=== PATIENT | female | born 1985 | race Caucasian/White ===

== ENCOUNTER → 2018-06-05 | Outpatient (CLI) | payer OTHER | LOC: FBPOP 16:43 → MERGE 16:43 | PROVIDERS: ATTEND Obstetrics & Gynecology | DX: Z53.9 Procedure and treatment not carried out, unspecified reason (principal) ==

== ENCOUNTER 2018-06-06 11:03 | Outpatient (CLI) | payer OTHER ==
[2018-06-06] MEDS ORDERED: BETAMET ACET-BETAMETH SOD PHOS 6 MG/ML VIAL IM SCH (11:15)
--- NOTE | 2018-07-06 08:18 | P.MSEPDOC ---
Presenting Problems - Arrival Data Date of Arrival on Unit: 06/06/18 Time of Arrival on Unit: 11:05 Mode of Transport: Ambulatory Medical History - Information : 2 Para: 1 Term: 1 : 0 Abortions: Spontaneous or Elective: 0 Number of Living Children: 1 - Gestational Age Gestational Age by TAYLOR (wks/days): 34 Weeks and 4 Days Disposition - Disposition OB Disposition: Discharge to home I agree with the RN Medical Screening Exam: Yes Risk & Benefit of care provided described in d/c instruction: Yes Diagnosis: RELATED CONDITIONS, UNSPECIFIED, THIRD TRIMESTER
== END 2018-06-06 11:30 | disposition home or self-care (01) ==
LOC: MERGE 11:03 → FBPOP 11:03
PROVIDERS: ATTEND Obstetrics & Gynecology
DX: O26.93 Pregnancy related conditions, unspecified, third trimester (principal); Z3A.34 34 weeks gestation of pregnancy
CPT/HCPCS: 99214; 96372; J0702

== ENCOUNTER 2018-06-07 10:44 | Outpatient (CLI) | payer OTHER ==
[2018-06-07] MEDS ORDERED: BETAMET ACET-BETAMETH SOD PHOS 6 MG/ML VIAL IM SCH (11:00)
--- NOTE | 2018-07-06 08:19 | P.MSEPDOC ---
Presenting Problems - Arrival Data Date of Arrival on Unit: 06/07/18 Time of Arrival on Unit: 10:45 Mode of Transport: Ambulatory - Complaint Comment: Pt arrives to triage for second celestone injection. Pt receives NSTs qweekly and rec'd one Monday. Medical History - Information : 2 Para: 1 Term: 1 : 0 Abortions: Spontaneous or Elective: 0 Number of Living Children: 1 - Gestational Age Gestational Age by TAYLOR (wks/days): 34 Weeks and 5 Days - History Complications: Multiple Review of Systems - Review of Systems Constitutional: No problems Breast: No problems ENT: No problems Cardiovascular: No problems Respiratory: No problems Gastrointestinal: No problems Genitourinary: No problems Musculoskeletal: No problems Neurological: No problems Skin: No problems Medical Screen Scoring (Pre) - Cervical Exam Dilation: Exam Deferred Effacement: Exam Deferred Membranes: Intact - Maternal Vital Signs Maternal Temperature: N/A - Total Score Total Score (Pre): 0 - Level of Risk Level of Risk: Low (0-5) Physician Notification (Pre) - Physician Notified Physician Notified Date: 06/07/18 Physician Notified Time: 10:50 Physician/Practitioner Notifed:: Sujit Spoke With: Sujit New Order Received: Yes - Notification Comment Comment: Spk c\Dr. Beckett; pt arrives for second celestone, rec'd first dose in triage yesterday. Dr. Beckett order's second celestone injection; no monitoring required; pt has scheduled weekly nsts. Disposition - Disposition OB Disposition: Discharge to home, Written follow up instructions reviewed Discharge Date: 06/07/18 Discharge Time: 11:00 I agree with the RN Medical Screening Exam: Yes Risk & Benefit of care provided described in d/c instruction: Yes Diagnosis: RELATED CONDITIONS, UNSPECIFIED, THIRD TRIMESTER
== END 2018-06-07 10:58 | disposition home or self-care (01) ==
LOC: FBPOP 10:44 → MERGE 10:44 → FBPOP 10:58
PROVIDERS: ATTEND Obstetrics & Gynecology
DX: O26.93 Pregnancy related conditions, unspecified, third trimester (principal); Z3A.34 34 weeks gestation of pregnancy
CPT/HCPCS: 96372; J0702

== ENCOUNTER 2018-06-10 06:03 | Inpatient (IN) | payer OTHER ==
[2018-06-10] MEDS ORDERED: METHYLERGONOVINE 0.2 MG/ML 1 ML AMP IM PRN (06:21)
[2018-06-10] MEDS ORDERED: TERBUTALINE 1 MG/ML VIAL SQ PRN (06:21)
[2018-06-10] MEDS ORDERED: CARBOPROST TROMETHAMINE 250 MCG/ML 1 ML AMP IM PRN (06:21)
[2018-06-10] MEDS ORDERED: PENICILLIN G POTASSIUM 5,000,000 UNIT in DEXTROSE 5% IN WATER 100 ML IVPB STA ×2 (06:21)
[2018-06-10] MEDS ORDERED: OXYTOCIN 10 UNIT/ML 1 ML VIAL IM PRN (06:21)
[2018-06-10] MEDS ORDERED: LIDOCAINE 1% (PF) 10 MG/ML (30 ML SDV) SQ PRN (06:21)
[2018-06-10] MEDS ORDERED: LACTATED RINGERS 1,000 ML IV SCH ×2 (06:30)
[2018-06-10 06:45] VITALS: BMI 25.4
[2018-06-10 06:51] LABS: Basophils % (A) 0 %; Eosinophils # (A) 0.1 k/uL (0-0.7); Eosinophils % (A) 0 %; HCT 38.7 % (34.0-46.0); HGB 13.1 gm/dL (11.4-16.0); Lymphocytes # (A) 2.2 k/uL (1.0-4.8); Lymphocytes % (A) 12 %; MCH 31.3 pg (25.0-35.0); MCHC 33.8 g/dL (31.0-37.0); MCV 92.6 fL (80.0-100.0); Mean Platelet Volume 8.4; Monocytes % (A) 6 %; Neutrophils # (A) 14.8 k/uL (1.3-7.7); Neutrophils % (A) 80 %; Platelet Count 227 k/uL (150-450); RBC 4.18 m/uL (3.80-5.40); RDW 13.7 % (11.5-15.5); WBC 18.4 k/uL (3.8-10.6)
[2018-06-10 06:57] LABS: Glucose,Whole Blood 78 mg/dL (75-99)
--- NOTE | 2018-06-10 07:36 | P.HPOB ---
History of Present Illness H&P Date: 06/10/18 This is a 32-year-old white female 2 para 1001 EDC 07/14/2018 at 35 and one sevenths weeks' gestation. Patient presented with strong regular uterine contractions since 0300 hrs. She denied vaginal bleeding or fluid leakage. Her is remarkable for known monochorionic, diamniotic twin gestation. Obstetric history is significant for gestational diabetes, home blood sugar monitoring has been excellent. Frequent ultrasounds of been done, verifying time cord and growth. Patient's blood type is O+, rubella status immune. Group B strep cultures positive. Gonorrhea and chlamydia cultures, hepatitis B surface antigen, HIV testing, urine culture, all negative. Infant's have been vertex vertex via ultrasound including her visit this week. Past medical history is negative. Current medications vitamin daily. ALLERGIES none known. Family history significant for hyperlipidemia, breast cancer. Social history patient is , she has never been a smoker, she denies alcohol or drug use. Past obstetric history vaginal delivery 2015 liveborn female 6 lbs. 7 oz. Past surgical history is negative. On exam this is a pleasant female, 5 foot 6 inches, 158 pounds, blood pressure 135/75 on admission, pulse 111, patient is afebrile. The general physical exam is within normal limits. Cervix at the time of my first check is completely dilated, vertex presentation, intact membranes. Bedside ultrasound confirms vertex vertex presentation. 0 to +1 station. Artificial amniorrhexis reveals light meconium-stained fluid on a. heart rate is reactive on both twins. Impression: 35 and one sevenths weeks intrauterine , monochorionic diamniotic twins. Light meconium-stained fluid a. Positive group B strep cultures. Patient requesting epidural, but delivery is imminent. Plan: We will deliver the babies and back under double setup. Anesthesia staff is aware. Foot Caster in-house. Anticipate normal spontaneous vaginal delivery 2. Review of Systems Negative except as in HPI Past Medical History Past Medical History: Diabetes Mellitus History of Any Multi-Drug Resistant Organisms: None Reported Past Surgical History: No Surgical Hx Reported Additional Past Surgical History / Comment(s): tubes in ears Past Anesthesia/Blood Transfusion Reactions: No Reported Reaction Past Psychological History: No Psychological Hx Reported Smoking Status: Never smoker Past Alcohol Use History: None Reported Past Drug Use History: None Reported - Past Family History Mother Family Medical History: No Reported History Medications and Allergies Home Medications Medication Instructions Recorded Confirmed Type Tzz-Pefd-Snlap Acid 1 each PO DAILY 07/25/14 06/10/18 History [-U Capsule] Allergies Allergy/AdvReac Type Severity Reaction Status Date / Time No Known Allergies Allergy Verified 06/10/18 06:05 Exam Vital Signs Temp Pulse Resp BP BP 06/10/18 07:22 97.8 F 104 H 16 125/60 06/10/18 06:40 98.0 F 111 H 18 135/75 Intake and Output 06/09/18 06/10/18 06/10/18 22:59 06:59 14:59 Other: Weight 71.668 kg Please see dictation under HPI. Results Result Diagrams: 06/10/18 06:30 Abnormal Lab Results - Last 24 Hours (Table) 06/10/18 Range/Units 06:30 WBC 18.4 H (3.8-10.6) k/uL Neutrophils # 14.8 H (1.3-7.7) k/uL Assessment and Plan Assessment: 35 and one sevenths weeks intrauterine , known twin gestation, active labor, delivery imminent Plan: To the operating room for double set up. Anticipate normal spontaneous vaginal delivery 2. Anesthesia and pediatricians present. Time with Patient: Less than 30
--- NOTE | 2018-06-10 07:42 | P.PROBDLV ---
Vaginal Delivery Note - . Vaginal Delivery Note: This is a 32-year-old 2 para 1001 EDC 07/14/2018 at 35 and one sevenths weeks' gestation. Patient presented in active spontaneous labor with strong regular uterine contractions. Her is significant for known monochorionic diamniotic twin gestation, routine ultrasounds have shown, according growth. Steroids were received last week 2. She is to be strep positive. Please see my dictated history and physical for details. On admission patient was noted to be 8 cm dilated, 100% effaced, 0 station, vertex vertex presentation. Artificial amniorrhexis revealed thin meconium- stained fluid. She was taken to the operating room for double set up vaginal delivery. Bedside ultrasound present. Anesthesia and airplane cabin attendant staff both present. Perineal body was prepped and draped in usual sterile fashion. With excellent maternal expulsive efforts baby A was quickly delivered. scores were 8 and 9 at one and 5 minutes respectively. Time of delivery 07 100. Umbilical cord was doubly clamped and ligated, he was handed to waiting pediatricians. His weight is 5 lbs. 6 oz. or 2435 g. Under controlled conditions artificial amniorrhexis of PE revealed clear fluid. Again with excellent controlled maternal effort baby B delivered occiput anterior. Baby B quickly delivered vaginally, time of delivery 0706 hrs. Umbilical cord was doubly clamped and ligated, he too was handed to waiting pediatricians where scores of 7 and 8 at one and 5 minutes respectively were given. His weight is 12/04/2004 grams or 5 lbs. 8 oz. The uterus is then massaged. The placenta delivers spontaneously, with trivascular cord 2. Time of vaginal delivery of placenta 0708 hrs. This placenta is sent to pathology for further evaluation. Once again the uterus is massaged, it is firm and well below the umbilicus. Oxytocin is given. Inspection now of the cervix, vagina, perineum, periurethral, and perirectal areas reveals a small left labial laceration injected with lidocaine and repaired with a single uitwln-yl-chbwn suture of 3-0 Vicryl. There is also a small periclitoral laceration, also injected with 1% lidocaine and repaired with a single clrimj-pt-qwaxt suture of 3-0 Vicryl. All sponge needle and enhancement counts are correct at the end of this procedure. Total estimated blood loss 300 mL's. are doing well in the nursery. She is requesting circumcision for both of her sons.
[2018-06-10] MEDS ORDERED: ZOLPIDEM 5 MG TAB PO PRN (07:43)
[2018-06-10] MEDS ORDERED: diphenhydrAMINE ELIXIR 25 MG/10 ML CUP PO PRN (07:43)
[2018-06-10] MEDS ORDERED: LANOLIN CREAM 5 GM TUBE TOPICAL PRN (07:43)
[2018-06-10] MEDS ORDERED: BENZOCAINE/MENTHOL SPRAY 1 GM/SPRAY AEROSOL TOPICAL PRN (07:43)
[2018-06-10] MEDS ORDERED: diphenhydrAMINE 25 MG CAP PO PRN (07:43)
[2018-06-10] MEDS ORDERED: HYDROCORTISONE 2.5% RECTAL CREAM 30 GM TUBE RECTAL PRN (07:43)
[2018-06-10] MEDS ORDERED: diphenhydrAMINE 50 MG/ML 1 ML VIAL IVP PRN ×2 (07:43)
[2018-06-10] MEDS ORDERED: ACETAMINOPHEN TAB 325 MG TAB PO PRN (07:43)
[2018-06-10] MEDS ORDERED: WITCH HAZEL 1 EACH MED..PAD TOPICAL PRN (07:43)
[2018-06-10] MEDS ORDERED: SIMETHICONE 80 MG CHEWABLE PO PRN (07:43)
[2018-06-10] MEDS ORDERED: diphenhydrAMINE 50 MG CAP PO PRN (07:43)
[2018-06-10] MEDS: IBUPROFEN 600 MG TAB PO PRN ×2 (07:58→19:40)
[2018-06-10] MEDS: SENNOSIDES-DOCUSATE SODIUM 1 EACH TAB PO SCH ×2 (12:14→19:41)
[2018-06-11] MEDS: SENNOSIDES-DOCUSATE SODIUM 1 EACH TAB PO SCH ×2 (07:35→20:53)
--- NOTE | 2018-06-11 07:41 | P.PN ---
Subjective Progress Note Date: 06/11/18 Principal diagnosis: day #1 Slept well. Minimal lochia rubra. No pain. Objective - Vital Signs Vital signs: Vital Signs Temp 97.8 F 06/11/18 00:00 Pulse 68 06/11/18 00:00 Resp 18 06/11/18 00:00 BP 108/58 06/11/18 00:00 Pulse Ox Intake & Output 06/10/18 06/11/18 06/11/18 18:59 06:59 18:59 Intake Total 1000 600 Balance 1000 600 Intake: IV 1000 Lactated Ringers 1,000 ml 1000 @ 125 mls/hr IV .Q8H MAGEN Rx#:[id number] Oral 600 Other: # Voids 3 - Constitutional General appearance: Present: average body habitus, cooperative - EENT Eyes: Present: PERRLA ENT: Present: hearing grossly normal - Neck Thyroid: bilateral: normal size - Respiratory Respiratory: bilateral: CTA - Cardiovascular Rhythm: regular - Gastrointestinal General gastrointestinal: Present: normal bowel sounds - Integumentary Integumentary: Present: normal - Neurologic Neurologic: Present: CNII-XII intact - Musculoskeletal Musculoskeletal: Present: gait normal, strength equal bilaterally - Psychiatric Psychiatric: Present: A&O x's 3, appropriate affect, intact judgment & insight - Labs CBC & Chem 7: 06/10/18 06:30 Assessment and Plan Assessment: Doing well day #1 Plan: Continue care. Likely discharge home tomorrow. Time with Patient: Less than 30
[2018-06-11 09:37] LABS: Hemoglobin A1C 5.1 % (4.0-6.0)
[2018-06-11] MEDS: IBUPROFEN 600 MG TAB PO PRN (10:21)
[2018-06-12 08:19] VITALS: BP 111/73; PULSE 84; RESP 18; TEMP 97.9
[2018-06-12] MEDS: SENNOSIDES-DOCUSATE SODIUM 1 EACH TAB PO SCH (08:19)
--- NOTE | 2018-06-12 09:03 | P.DS ---
Providers Date of admission: 06/10/18 06:17 Expected date of discharge: 06/12/18 Attending physician: Wanda Beckett Primary care physician: Stated None Hospital Course: This is a 32-year-old white female 2 para 1001 EDC 07/14/2018 at 35 and one sevenths weeks' gestation. Patient has a known monochorionic, diamniotic twin . Growth has been concordant throughout. Steroids were received last week. Group B strep cultures negative, blood type O positive, rubella status immune. Please see dictated history and physical for details. Patient presented in active labor, cervix was 8 cm in the triage area. She was admitted, shortly thereafter she was checked and noted to be complete. Artificial amniorrhexis of baby A revealed thin meconium-stained fluid. Patient was brought to the back for delivery under double setup. She delivered liveborn male infants, baby A weighed 5 lbs. 6 oz. or 2435 g and had scores of 8 and 9 at one and 5 minutes respectively. Baby B weighed 5 lbs. 8 oz. or 255 g, had scores of 7 and 8 at one and 5 minutes respectively. Artificial amniorrhexis of baby B revealed clear fluid, both delivered in the vertex presentation. Please see my dictated delivery note for details. Patient is doing well at this time. She is voiding, ambulating and passing flatus without difficulty. Vital signs are stable and she is afebrile. Fundus is firm and in the midline, symmetric and 18 week size. Extremities are negative for edema. Breast-feeding is going well. [place] are doing well in the nursery, and are being advanced in terms of their feeding. Neither is requiring oxygen at this time. Baby will stay in the nursery until ready for discharge, circumcision will be performed prior to discharge home. Patient is being discharged home today in very good condition. She will follow- up with me in the office in 6 weeks. She will continue taking vitamins daily. She has a breast pump. She will use mlre-jxq-miatstl Advil, Aleve or Motrin products as directed on the labels as needed for pain. I've asked her to call me with any fevers shakes or chills, foul smelling or copious lochia, with the passage of large blood clots, with any pain not alleviated by fdfz-hzf-vvsvvac products or with any concerns. Patient Condition at Discharge: Good Plan - Discharge Summary New Discharge Prescriptions: No Action Uac-Zcrn-Oicgf Acid [-U Capsule] 1 each PO DAILY Discharge Medication List Nux-Bows-Gggvx Acid [-U Capsule] 1 each PO DAILY 07/25/14 [ History] Follow up Appointment(s)/Referral(s): Wanda Beckett MD [STAFF PHYSICIAN] - 6 Weeks Discharge Disposition: HOME SELF-CARE
== END 2018-06-12 12:56 | disposition home or self-care (01) | DRG 775 ==
LOC: FBPOP 06:03 → 4FBP 06:17 → MERGE 06:17
PROVIDERS: ADMIT Obstetrics & Gynecology; ATTEND Obstetrics & Gynecology
PROC: 10E0XZZ Delivery of Products of Conception, External Approach (ICD-10-PCS; principal; 2018-06-10)
PROC: 0UQJXZZ Repair Clitoris, External Approach (ICD-10-PCS; 2018-06-10)
PROC: 0UQMXZZ Repair Vulva, External Approach (ICD-10-PCS; 2018-06-10)
PROC: 10907ZC Drainage of Amniotic Fluid, Therapeutic from Products of Conception, Via Natural or Artificial Opening (ICD-10-PCS; 2018-06-10)
DX: O30.033 Twin pregnancy, monochorionic/diamniotic, third trimester (principal); O70.0 First degree perineal laceration during delivery; O71.89 Other specified obstetric trauma; O77.0 Labor and delivery complicated by meconium in amniotic fluid; Z37.2 Twins, both liveborn; Z3A.35 35 weeks gestation of pregnancy
CPT/HCPCS: 59025; 83036; 85025; 86850; 86900; 86901; 88307; 99213

== ENCOUNTER 2019-01-08 10:59 | Emergency (ER) | payer BC, OTHER ==
[2019-01-08 11:15] VITALS: BP 108/73; PULSE 93; RESP 18; TEMP 97.8
[2019-01-08] MEDS ORDERED: SODIUM CHLORIDE 0.9% 2,000 ML IV STA (11:51)
[2019-01-08] MEDS ORDERED: ONDANSETRON 4 MG/2 ML VIAL IVP STA (11:51)
--- NOTE | 2019-01-08 12:28 | ED ---
General Adult HPI - General Chief complaint: Nausea/Vomiting/Diarrhea Stated complaint: Dehydration Time Seen by Provider: 01/08/19 11:27 Source: patient, RN notes reviewed Mode of arrival: ambulatory Limitations: no limitations - History of Present Illness Initial comments: 33-year-old female presents to the emergency department for a chief complaint of nausea. Patient has also had diarrhea. The symptoms started today. Patient has not vomited. Patient has also felt more tired than normal. Patient states she was seen at urgent care and sent into the ER for possible dehydration. She denies fevers or chills at home. She denies any abdominal pain. Patient has no other complaints at this time including shortness of breath, chest pain, abdomin al pain, headache, or visual changes. - Related Data Previous Rx's Medication Instructions Recorded Ondansetron [Zofran ODT] 4 mg PO Q8HR PRN #15 tab 01/08/19 Allergies Allergy/AdvReac Type Severity Reaction Status Date / Time No Known Allergies Allergy Verified 01/08/19 11:46 Review of Systems ROS Statement: Those systems with pertinent positive or pertinent negative responses have been documented in the HPI. ROS Other: All systems not noted in ROS Statement are negative. Past Medical History Past Medical History: Diabetes Mellitus History of Any Multi-Drug Resistant Organisms: None Reported Past Surgical History: No Surgical Hx Reported Additional Past Surgical History / Comment(s): tubes in ears Past Anesthesia/Blood Transfusion Reactions: No Reported Reaction Past Psychological History: No Psychological Hx Reported Smoking Status: Never smoker Past Alcohol Use History: None Reported Past Drug Use History: None Reported - Past Family History Mother Family Medical History: No Reported History General Exam Limitations: no limitations General appearance: alert, in no apparent distress Head exam: Present: atraumatic, normocephalic, normal inspection Eye exam: Present: normal appearance, PERRL, EOMI. Absent: scleral icterus, conjunctival injection, periorbital swelling ENT exam: Present: normal exam, mucous membranes moist Neck exam: Present: normal inspection, full ROM. Absent: tenderness, meningismus, lymphadenopathy Respiratory exam: Present: normal lung sounds bilaterally. Absent: respiratory distress, wheezes, rales, rhonchi, stridor Cardiovascular Exam: Present: regular rate, normal rhythm, normal heart sounds. Absent: systolic murmur, diastolic murmur, rubs, gallop, clicks GI/Abdominal exam: Present: soft, normal bowel sounds. Absent: distended, tenderness (No tenderness noted in the abdomen), guarding, rebound, rigid Neurological exam: Present: alert, oriented X3, CN II-XII intact Psychiatric exam: Present: normal affect, normal mood Course Vital Signs 01/08/19 11:12 Temperature 97.8 F Pulse Rate 93 Respiratory 18 Rate Blood Pressure 108/73 O2 Sat by Pulse 99 Oximetry Medical Decision Making - Medical Decision Making Pleasant 33-year-old female presents to the emergency department for a chief complaint of nausea and diarrhea 6 hours. Patient states she woke up with these symptoms. She states she has felt tired this morning. She denies any abdominal pain whatsoever. Patient did see urgent care and was sent to the emergency department for dehydration on exam no abdominal tenderness. CBC does show a white count of 15.6, likely related to gastric enteritis as patient has nausea as well as diarrhea. CMP generally unremarkable. BUN 20, patient given 2 L of fluids. Urine does not show any evidence of infection. HCG is negative. Influenza is negative. At this time patient does still have mild nausea but is stating she is ready to go home. Patient will be given prescription for Zofran. I discussed the patient that if she starts having any abdominal pain or fevers to return here immediately to the emergency department. Patient agrees with this. She will follow-up with her primary care provider. - Lab Data Result diagrams: 01/08/19 12:16 01/08/19 12:16 Lab Results 01/08/19 01/08/19 01/08/19 Range/Units 12:16 12:16 12:16 WBC 15.6 H (3.8-10.6) k/uL RBC 4.95 (3.80-5.40) m/uL Hgb 15.1 (11.4-16.0) gm/dL Hct 45.5 (34.0-46.0) % MCV 92.0 (80.0-100.0) fL MCH 30.6 (25.0-35.0) pg MCHC 33.3 (31.0-37.0) g/dL RDW 12.3 (11.5-15.5) % Plt Count 328 (150-450) k/uL Neutrophils % 94 % Lymphocytes % 2 % Monocytes % 3 % Eosinophils % 1 % Basophils % 0 % Neutrophils # 14.6 H (1.3-7.7) k/uL Lymphocytes # 0.3 L (1.0-4.8) k/uL Monocytes # 0.5 (0-1.0) k/uL Eosinophils # 0.1 (0-0.7) k/uL Basophils # 0.0 (0-0.2) k/uL Sodium 138 (137-145) mmol/L Potassium 4.4 (3.5-5.1) mmol/L Chloride 106 (98-107) mmol/L Carbon Dioxide 24 (22-30) mmol/L Anion Gap 8 mmol/L BUN 20 H (7-17) mg/dL Creatinine 0.52 (0.52-1.04) mg/dL Est GFR (CKD-EPI)AfAm >90 (>60 ml/min/1.73 sqM) Est GFR (CKD-EPI)NonAf >90 (>60 ml/min/1.73 sqM) Glucose 99 (74-99) mg/dL Calcium 9.5 (8.4-10.2) mg/dL Total Bilirubin 1.1 (0.2-1.3) mg/dL AST 16 (14-36) U/L ALT 31 (9-52) U/L Alkaline Phosphatase 88 (38-126) U/L Total Protein 7.5 (6.3-8.2) g/dL Albumin 4.6 (3.5-5.0) g/dL Amylase 93 (30-110) U/L Lipase 84 (23-300) U/L Urine Color Yellow Urine Appearance Clear (Clear) Urine pH 5.0 (5.0-8.0) Ur Specific [place] 1.024 (1.001-1.035) Urine Protein Trace H (Negative) Urine Glucose (UA) Negative (Negative) Urine Ketones Negative (Negative) Urine Blood Negative (Negative) Urine Nitrite Negative (Negative) Urine Bilirubin Negative (Negative) Urine Urobilinogen <2.0 (<2.0) mg/dL Ur Leukocyte Esterase Negative (Negative) Urine HCG, Qual (Not Detectd) Influenza Type A RNA (Not Detectd) Influenza Type B (PCR) (Not Detectd) 01/08/19 01/08/19 Range/Units 12:16 12:41 WBC (3.8-10.6) k/uL RBC (3.80-5.40) m/uL Hgb (11.4-16.0) gm/dL Hct (34.0-46.0) % MCV (80.0-100.0) fL MCH (25.0-35.0) pg MCHC (31.0-37.0) g/dL RDW (11.5-15.5) % Plt Count (150-450) k/uL Neutrophils % % Lymphocytes % % Monocytes % % Eosinophils % % Basophils % % Neutrophils # (1.3-7.7) k/uL Lymphocytes # (1.0-4.8) k/uL Monocytes # (0-1.0) k/uL Eosinophils # (0-0.7) k/uL Basophils # (0-0.2) k/uL Sodium (137-145) mmol/L Potassium (3.5-5.1) mmol/L Chloride (98-107) mmol/L Carbon Dioxide (22-30) mmol/L Anion Gap mmol/L BUN (7-17) mg/dL Creatinine (0.52-1.04) mg/dL Est GFR (CKD-EPI)AfAm (>60 ml/min/1.73 sqM) Est GFR (CKD-EPI)NonAf (>60 ml/min/1.73 sqM) Glucose (74-99) mg/dL Calcium (8.4-10.2) mg/dL Total Bilirubin (0.2-1.3) mg/dL AST (14-36) U/L ALT (9-52) U/L Alkaline Phosphatase (38-126) U/L Total Protein (6.3-8.2) g/dL Albumin (3.5-5.0) g/dL Amylase (30-110) U/L Lipase (23-300) U/L Urine Color Urine Appearance (Clear) Urine pH (5.0-8.0) Ur Specific [place] (1.001-1.035) Urine Protein (Negative) Urine Glucose (UA) (Negative) Urine Ketones (Negative) Urine Blood (Negative) Urine Nitrite (Negative) Urine Bilirubin (Negative) Urine Urobilinogen (<2.0) mg/dL Ur Leukocyte Esterase (Negative) Urine HCG, Qual Not Detected (Not Detectd) Influenza Type A RNA Not Detected (Not Detectd) Influenza Type B (PCR) Not Detected (Not Detectd) Disposition Clinical Impression: Nausea, Diarrhea Disposition: HOME SELF-CARE Condition: Good Instructions (If sedation given, give patient instructions): Acute Nausea and Vomiting (ED), Acute Diarrhea (ED) Additional Instructions: Please drink plenty of fluids. Take Zofran for nausea. Follow up with primary care in 1-2 days. Return here to the emergency department if you have any worsening symptoms. Prescriptions: Ondansetron [Zofran ODT] 4 mg PO Q8HR PRN #15 tab PRN Reason: Nausea Is patient prescribed a controlled substance at d/c from ED?: No Referrals: Joan Mcdowell III, MD [Primary Care Provider] - 1-2 days Time of Disposition: 13:34
[2019-01-08 12:45] LABS: Basophils % (A) 0 %; Eosinophils # (A) 0.1 k/uL (0-0.7); Eosinophils % (A) 1 %; HCT 45.5 % (34.0-46.0); HGB 15.1 gm/dL (11.4-16.0); Lymphocytes # (A) 0.3 k/uL (1.0-4.8); Lymphocytes % (A) 2 %; MCH 30.6 pg (25.0-35.0); MCHC 33.3 g/dL (31.0-37.0); Mean Platelet Volume 7.3; Monocytes # (A) 0.5 k/uL (0-1.0); Monocytes % (A) 3 %; Neutrophils # (A) 14.6 k/uL (1.3-7.7); Neutrophils % (A) 94 %; Platelet Count 328 k/uL (150-450); RBC 4.95 m/uL (3.80-5.40); RDW 12.3 % (11.5-15.5); WBC 15.6 k/uL (3.8-10.6)
[2019-01-08 12:46] LABS: Appearance,Urine Clear (Clear); Bilirubin,Urine Negative (Negative); Blood,Urine Negative (Negative); Color,Urine Yellow; Glucose,Urine (UA) Negative (Negative); Ketones,Urine Negative (Negative); Leukocyte Esterase,Urine Negative (Negative); Nitrite,Urine Negative (Negative); Protein,Urine Trace (Negative); Specific Gravity,Urine 1.024 (1.001-1.035); Urobilinogen,Urine <2.0 mg/dL (<2.0)
[2019-01-08 12:57] LABS: ALT 31 U/L (9-52); AST 16 U/L (14-36); Albumin 4.6 g/dL (3.5-5.0); Alkaline Phosphatase 88 U/L (38-126); Amylase 93 U/L (30-110); Anion Gap 8 mmol/L; Blood Urea Nitrogen 20 mg/dL (7-17); Calcium 9.5 mg/dL (8.4-10.2); Carbon Dioxide 24 mmol/L (22-30); Chloride 106 mmol/L (98-107); Glucose 99 mg/dL (74-99); Lipase 84 U/L (23-300); Potassium 4.4 mmol/L (3.5-5.1); Sodium 138 mmol/L (137-145); Total Bilirubin 1.1 mg/dL (0.2-1.3); Total Protein 7.5 g/dL (6.3-8.2)
== END 2019-01-08 14:23 | disposition home or self-care (01) ==
LOC: EC 10:59
DX: R19.7 Diarrhea, unspecified (principal); R11.0 Nausea; Z96.22 Myringotomy tube(s) status
CPT/HCPCS: 36415; 80053; 82150; 83690; 85025; 81003; 81025; 87502; 99283; 96374; 96361; J2405

== ENCOUNTER 2019-02-18 14:07 | Emergency (ER) | payer BC, OTHER ==
[2019-02-18 14:35] VITALS: BP 113/73; PULSE 85; RESP 18; TEMP 98.1
[2019-02-18] MEDS ORDERED: DIPH,PERTUS(ACELL)TETVAC-LF 0.5 ML VIAL IM ONE (14:50)
--- NOTE | 2019-02-18 15:15 | ED ---
Recheck HPI - General Chief Complaint: Recheck/Abnormal Lab/Rx Stated Complaint: [facility]-Scratch on hand Time Seen by Provider: 02/18/19 14:48 Source: patient Mode of arrival: ambulatory Limitations: no limitations - History of Present Illness Initial Comments: 33-year-old female sent for evaluation for scratch of left hand dorsum. Patient states that while in class today she was scratched by student. Patient is unsure of her last tetanus. Patient states the scratch did draw blood. Patient was told to come to the ER for evaluation due to being a work related incident. Patient denies any other area of injury. Remaining review of systems negative. - Related Data Previous Rx's Medication Instructions Recorded Ondansetron [Zofran ODT] 4 mg PO Q8HR PRN #15 tab 01/08/19 Allergies Allergy/AdvReac Type Severity Reaction Status Date / Time No Known Allergies Allergy Verified 01/08/19 11:46 Review of Systems ROS Statement: Those systems with pertinent positive or pertinent negative responses have been documented in the HPI. ROS Other: All systems not noted in ROS Statement are negative. Past Medical History Past Medical History: Diabetes Mellitus History of Any Multi-Drug Resistant Organisms: None Reported Past Surgical History: Ear Surgery Additional Past Surgical History / Comment(s): tubes in ears Past Anesthesia/Blood Transfusion Reactions: No Reported Reaction Past Psychological History: No Psychological Hx Reported Smoking Status: Never smoker Past Alcohol Use History: None Reported Past Drug Use History: None Reported - Past Family History Mother Family Medical History: No Reported History General Exam - General Exam Comments Initial Comments: General: The patient is awake and alert, in no distress, and does not appear acutely ill. Eye: Pupils are equal, round and reactive to light, extra-ocular movements are intact. No nystagmus. There is normal conjunctiva bilaterally. No signs of icterus. Ears, nose, mouth and throat: There are moist mucous membranes and no oral lesions. Neck: The neck is supple, there is no tenderness or JVD. Cardiovascular: There is a regular rate and rhythm. No murmur, rub or gallop is appreciated. Respiratory: Lungs are clear to auscultation, respirations are non-labored, breath sounds are equal. No wheezes, stridor, rales, or rhonchi. Musculoskeletal: Normal ROM, no tenderness. Strength 5/5. Sensation intact. Pulses equal bilaterally 2+. Neurological: A&O x 3. CN II-XII intact, There are no obvious motor or sensory deficits. Coordination appears grossly intact. Speech is normal. Skin: Skin is warm and dry and no rashes. Linear superifical abrasion of the left hand dorsum 3cm. Psychiatric: Cooperative, appropriate mood & affect, normal judgment. Limitations: no limitations Course Vital Signs 02/18/19 14:32 Temperature 98.1 F Pulse Rate 85 Respiratory 18 Rate Blood Pressure 113/73 O2 Sat by Pulse 99 Oximetry Medical Decision Making - Medical Decision Making Patient tetanus up-to-date. Physical examination revealed a very superficial scratch. Cleansed sterile bandage was applied. Signs of infection discussed with patient. Patient denies diabetes or immune compromise concerning for increased risk of infection. Patient be discharged with instruction to use over -the-counter topical treatment such as Neosporin or bacitracin. Patient is agreeable care plan as discharge at this time. Return parameters were discussed at length patient verbalizes understanding. Discussed case with type provider Dr. Mckenzie. Patient's discharge Disposition Clinical Impression: Abrasion Disposition: HOME SELF-CARE Condition: Good Instructions (If sedation given, give patient instructions): Abrasion (ED) Additional Instructions: Please use topical over the counter medication as discussed. Please follow-up with family doctor in the next 2 days of symptoms have not improved. Please return to emergency room if the symptoms increase or worsen or for any other concerns, increasing redness, drainage, pain at site of injury. Is patient prescribed a controlled substance at d/c from ED?: No Referrals: Joan Mcdowell III, MD [Primary Care Provider] - 1-2 days Time of Disposition: 15:15
== END 2019-02-18 15:42 | disposition home or self-care (01) ==
LOC: EC 14:07
DX: S60.512A Abrasion of left hand, initial encounter (principal); W50.4XXA Accidental scratch by another person, initial encounter; Y92.69 Other specified industrial and construction area as the place of occurrence of the external cause; Y99.0 Civilian activity done for income or pay
CPT/HCPCS: 90471; 90715; 99283